=== PATIENT | female | born 1975 | race Caucasian/White ===

== ENCOUNTER 2018-01-29 14:52 | Emergency (ER) | payer MEDICAID ==
[~2018-01-29] VITALS: Ht 175.3 cm; Wt 65.8 kg
--- NOTE | 2018-01-29 15:40 | NUR ---
A/OX3. NAD VSS C/O LEFT ANKLE PAIN S/P ROLLED HER FOOT WHILE WALKING DOGS ON SUNDAY
--- NOTE | 2018-01-29 17:05 | NUR ---
Patient discharged to home in stable condition. Written and verbal after care instructions given. Patient verbalizes understanding of instruction.
[2018-01-29 17:07] VITALS: BP 131/68
== END 2018-01-29 17:07 | disposition home or self-care (01) ==
LOC: ER 14:59
DX: S93.492A Sprain of other ligament of left ankle, initial encounter (principal); X50.1XXA Overexertion from prolonged static or awkward postures, initial encounter; Y93.K1 Activity, walking an animal; Y92.89 Other specified places as the place of occurrence of the external cause; Y99.8 Other external cause status
CPT/HCPCS: 73600-TC; 73620-TC; A4606; Z7610